=== PATIENT | female | born 1970 | race Caucasian/White ===

== ENCOUNTER → 2021-08-16 | Day surgery (SDC) | payer BC ==
[~2021-08-16] VITALS: Ht 165.1 cm; Wt 71.7 kg
[~2021-08-16] MED LIST: HYDROCODON-ACE1 EAC4 PO; LOSARTAN-HCTZ1 EAC2 PO; WELLBUTRIN XL150 MG PO
== END | disposition home or self-care (01) ==
LOC: OR 05:50
DX: L72.0 Epidermal cyst (principal); L72.3 Sebaceous cyst; I10 Essential (primary) hypertension; Z79.899 Other long term (current) drug therapy; Z20.822 Contact with and (suspected) exposure to COVID-19
CPT/HCPCS: J0690; J2001; J2250; J2704; J3010; J7120